=== PATIENT | female | born 1965 ===

== ENCOUNTER 2024-11-02 12:00 | Inpatient (IN) | payer OTHER ==
[~2024-11-02] VITALS: Ht 149.9 cm; Wt 60.8 kg
[2024-11-02] MEDS ORDERED: GRALISE600 MG PO (14:43)
[2024-11-02] MEDS ORDERED: PREVACID30 MG PO (14:43)
[2024-11-02] MEDS ORDERED: PROBIOTIC250 MG PO (14:43)
[2024-11-02] MEDS ORDERED: PEPCID AC20 MG PO (14:43)
[2024-11-02] MEDS ORDERED: DICY20TA PO (14:43)
[2024-11-02 15:03] VITALS: BP 140/82
[2024-11-08] MEDS ORDERED: METRONIDAZOLE/SODIUM CHLORIDE 500 MG/100 ML PIGGYBACK IV ONE (12:30)
[2024-11-08] MEDS ORDERED: BUPIVACAINE HCL 30 ML VIAL IJ ONE (12:30)
[2024-11-08] MEDS ORDERED: LIDOCAINE HCL 1%/EPINEPHRINE 20ML VIAL IJ ONE (12:30)
[2024-11-08] MEDS ORDERED: CEFTRIAXONE SODIUM 2,000 MG VIAL IV ONE (12:30)
[2024-11-08] MEDS ORDERED: MORPHINE SULFATE 4 MG/ML CARTRIDGE IV PRN (13:30)
[2024-11-08] MEDS ORDERED: RINGERS SOLUTION,LACTATED 1,000 ML IV SCH (13:30)
[2024-11-08] MEDS ORDERED: OxyCODONE HCL 5 MG TABLET (ROXICODONE) PO PRN (13:30)
[2024-11-08] MEDS ORDERED: ONDANSETRON HCL 2 MG/ML VIAL IV PRN (13:30)
[2024-11-08] MEDS ORDERED: ACETAMINOPHEN 500 MG GEL..CAP PO SCH (14:00)
[2024-11-08] MEDS ORDERED: MORPHINE SULFATE 4 MG/ML VIAL IV ONE (14:30)
[2024-11-08 14:44] LABS: HEMATOCRIT 40.5 % (36.0-45.00); HEMOGLOBIN 12.8 g/dL (12.0-15.00); MEAN CELL VOLUME 84.1 fL (80.00-100.00); MEAN CORPUSCULAR HEMOGLOBIN 26.7 pg (27.00-32.0); MEAN CORPUSCULAR HGB CONC 31.7 g/dl (32.0-36.0); PLATELET COUNT 252 K/uL (150-450); RED BLOOD COUNT 4.81 M/uL (4.00-6.00); RED CELL DISTRIBUTION WIDTH 14.6 % (11.5-14.5)
[2024-11-08] MEDS ORDERED: SIMETHICONE 125 MG CAPSULE PO SCH (17:00)
[2024-11-08] MEDS ORDERED: CELECOXIB 200 MG CAPSULE PO SCH (17:00)
[2024-11-08] MEDS ORDERED: METOCLOPRAMIDE HCL 5 MG/ML VIAL IV SCH (17:00)
[2024-11-08] MEDS ORDERED: HYOSCYAMINE SULFATE 0.125 MG TAB.SUBL SL SCH (17:00)
[2024-11-08] MEDS ORDERED: POLYETHYLENE GLYCOL 3350 17 GM BLIST.PACK PO SCH (17:00)
[2024-11-08] MEDS ORDERED: GABAPENTIN 300 MG CAPSULE PO SCH (17:00)
[2024-11-08] MEDS ORDERED: FAMOTIDINE/PF 20 MG/2 ML VIAL IV PUSH SCH (21:00)
[2024-11-09 00:15] VITALS: BP 112/64; O2SAT 98
[2024-11-09 06:46] LABS: HEMATOCRIT 34.8 % (36.0-45.00); HEMOGLOBIN 11.7 g/dL (12.0-15.00); MEAN CELL VOLUME 82.1 fL (80.00-100.00); MEAN CORPUSCULAR HEMOGLOBIN 27.8 pg (27.00-32.0); MEAN CORPUSCULAR HGB CONC 33.8 g/dl (32.0-36.0); PLATELET COUNT 219 K/uL (150-450); RED BLOOD COUNT 4.23 M/uL (4.00-6.00); RED CELL DISTRIBUTION WIDTH 14.4 % (11.5-14.5)
[2024-11-09 08:00] VITALS: BP 100/63; O2SAT 97
[2024-11-09] MEDS ORDERED: LACTOBACILLUS ACIDOPHILUS 1 CAP CAP PO SCH (09:00)
[2024-11-09] MEDS ORDERED: LACTULOSE 20 G/30 ML BLIST.PACK PO SCH (09:00)
[2024-11-09 11:35] LABS: ALBUMIN 3.2 gm/dL (3.4-5.0); CALCIUM 8.5 mg/dL (8.5-10.1); CREATININE SERUM 0.57 mg/dL (0.55-1.02); GFR 109.32; MAGNESIUM 2.1 mg/dL (1.8-2.4); POTASSIUM 3.61 mEq/L (3.5-5.1)
[2024-11-09 11:40] LABS: PHOSPHOROUS 1.5 mg/dL (2.5-4.9)
[2024-11-09] MEDS ORDERED: POTASSIUM PHOS,M-BASIC-D-BASIC 15 MM in 0.9 % SODIUM CHLORIDE 250 ML IV NR (12:30)
[2024-11-09 16:36] VITALS: BP 96/61; O2SAT 97
[2024-11-09] MEDS ORDERED: ENOXAPARIN SODIUM 40 MG/0.4 ML SYRINGE SUBCUTANEO SCH (17:00)
[2024-11-10 08:44] VITALS: BP 134/85; O2SAT 98
[2024-11-10] MEDS ORDERED: ENOXAPARIN SODIUM 40 MG/0.4 ML SYRINGE SUBCUTANEO SCH (09:00)
[2024-11-10 16:13] VITALS: BP 114/72; O2SAT 96
[2024-11-11 00:30] VITALS: BP 114/72; O2SAT 98
[2024-11-11 08:45] VITALS: BP 127/76; O2SAT 97
[2024-11-11] MEDS ORDERED: FAMOtidine 20 MG TABLET PO SCH (21:00)
== END 2024-11-11 16:27 | disposition home or self-care (01) | DRG 330 ==
LOC: SURH 11-08 05:53 → O/R 11-08 05:53 → SURH 11-08 07:00
PROVIDERS: ADMIT Colon & Rectal Surgery; ATTEND Colon & Rectal Surgery
PROC: 0DBP4ZZ Excision of Rectum, Percutaneous Endoscopic Approach (ICD-10-PCS; 2024-11-08)
PROC: 0TQB4ZZ Repair Bladder, Percutaneous Endoscopic Approach (ICD-10-PCS; 2024-11-08)
PROC: 0UQG4ZZ Repair Vagina, Percutaneous Endoscopic Approach (ICD-10-PCS; 2024-11-08)
PROC: 0DTN4ZZ Resection of Sigmoid Colon, Percutaneous Endoscopic Approach (ICD-10-PCS; principal; 2024-11-08 07:00)
PROC: BW21YZZ Computerized Tomography (CT Scan) of Abdomen and Pelvis using Other Contrast (ICD-10-PCS; 2024-11-10)
DX: K57.32 Diverticulitis of large intestine without perforation or abscess without bleeding (principal); K92.1 Melena; N99.72 Accidental puncture and laceration of a genitourinary system organ or structure during other procedure